=== PATIENT | female | born 1965 | race Hispanic/Latino ===

== ENCOUNTER 2017-08-03 17:21 | Emergency (ER) | payer SELFPAY ==
[~2017-08-03] VITALS: Ht 154.9 cm; Wt 102.0 kg
[2017-08-03 17:30] VITALS: BP 144/105
== END 2017-08-03 19:00 | disposition left against medical advice (07) | DRG 951 ==
LOC: ED 17:21 → LWOBS 19:00
DX: Z91.19 Patient's noncompliance with other medical treatment and regimen (principal)

== ENCOUNTER 2021-03-10 18:29 | Emergency (ER) | payer MEDICARE, OTHER ==
[~2021-03-10] VITALS: Ht 154.9 cm; Wt 90.0 kg
[2021-03-10] MEDS ORDERED: ARIMIDEX1 MG PO (21:36)
[2021-03-10] MEDS ORDERED: LISINOP/HCTZ1 TA1 PO (21:37)
[2021-03-10] MEDS ORDERED: GLIPIZIDE ER5 MG PO (21:38)
[2021-03-10] MEDS ORDERED: JANUVIA100 MG PO (21:38)
[2021-03-10] MEDS ORDERED: ESCITALOPRAM OX10 MG PO (21:39)
[2021-03-10] MEDS ORDERED: OXYCODONE5 M1 PO (21:44)
[2021-03-10] MEDS ORDERED: FLEXERIL5 M1 PO (21:46)
[2021-03-10] MEDS ORDERED: METFORMIN500 M2 PO (21:46)
[2021-03-10] MEDS ORDERED: BACTRIM DS1 TAB PO (21:47)
[2021-03-10] MEDS ORDERED: FUROSEMIDE20 MG PO (21:48)
[2021-03-10] MEDS ORDERED: GABAPENTIN100 MG PO (21:49)
[2021-03-10 21:50] LABS: HEMATOCRIT 33.9 % (37.0-47.0); HEMOGLOBIN 11.2 g/dl (12.0-16.0); IMMATURE GRANULOCYTES 0.3 % (0.0-5.0); NEUT# 5.9 thou/uL (2.00-7.15); RED BLOOD COUNT 3.5 mill/uL (4.20-5.60); RED CELL DISTRI WIDTH 13.7 % (11.5-15.5)
[2021-03-10 21:51] LABS: MEAN CELL VOLUME 96.9 fL CALC (80.0-100.0)
[2021-03-10 22:00] VITALS: BP 123/72
[2021-03-10 22:03] LABS: ALBUMIN 4.3 g/dL (3.2-5.0); ALKALINE PHOSPHATASE 103 u/l (38-126); AMYLASE 54 u/l (30-110); ANION GAP 18 (6-22 (CALC)); BILIRUBIN, TOTAL 0.6 mg/dL (0.0-1.4); CARBON DIOXIDE 20 mmol/l (22-30); CHLORIDE 98 mmol/l (95-108); GFR 17 ML/MIN (>=60 (CALC)); GFR FOR AFR.AMER. 21 ML/MIN (>=60 (CALC)); LIPASE 76 u/l (23-300); POTASSIUM 4.3 mmol/l (3.5-5.1); SGOT/AST 36 u/l (14-36); SODIUM 132 mmol/l (137-146); TOTAL PROTEIN 7.8 g/dL (6.3-8.2)
[2021-03-10 22:05] LABS: BUN 58 mg/dL (7-17); BUN/CREATININE RATIO 21 (12-20 (CALC)); CREATININE 2.8 mg/dL (0.5-1.0)
[2021-03-10 22:17] LABS: MYOGLOBIN 123 ng/mL (0 - 62)
[2021-03-10 22:37] LABS: URINE BILIRUBIN - DIPSTICK NEGATIVE (NEGATIVE); URINE BLOOD DIPSTICK NEGATIVE (NEGATIVE); URINE COLOR YELLOW; URINE GLUCOSE - DIPSTICK NEGATIVE (NEGATIVE); URINE KETONE NEGATIVE (NEGATIVE); URINE LEUK ESTERASE NEGATIVE (NEGATIVE); URINE PROTEIN - DIPSTICK NEGATIVE (NEG-TRACE); URINE UROBILINOGEN - DIPSTICK 0.2 E.U./dL (0.2)
[2021-03-10 22:43] LABS: URINE NITRITE - DIPSTICK POSITIVE (Negative)
[2021-03-10 22:44] LABS: URINE BACTERIA MODERATE hpf; URINE SQUAMOUS EPITHELIAL CELL FEW EPI/hpf (0-FEW)
== END 2021-03-10 22:18 | disposition left against medical advice (07) ==
LOC: ED 18:29
PROVIDERS: Emergency Medicine
DX: R10.9 Unspecified abdominal pain (principal); F19.10 Other psychoactive substance abuse, uncomplicated; C56.9 Malignant neoplasm of unspecified ovary; F41.9 Anxiety disorder, unspecified; F32.9 Major depressive disorder, single episode, unspecified; Z91.19 Patient's noncompliance with other medical treatment and regimen; Z20.822 Contact with and (suspected) exposure to COVID-19; Z79.899 Other long term (current) drug therapy